=== PATIENT | female | born 1960 | race Caucasian/White ===

== ENCOUNTER 2018-06-14 15:38 | Day surgery (SDC) | payer BC ==
[~2018-06-14 15:38] MED LIST: EPHEDrine SULFATE 50 MG/5 ML SYG; ROCURONIUM 50 MG INJ
[2018-06-14] MEDS ORDERED: PROPOFOL 20 ML (16:49)
[2018-06-14] MEDS ORDERED: CEFAZOLIN 1 GM INJ ×2 (16:49→20:54)
[2018-06-14] MEDS ORDERED: HYDROmorphONE 2 MG/ML SYG (16:50)
[2018-06-14] MEDS ORDERED: ROPIVACAINE 0.5 % 30 ML VIAL (16:50)
[2018-06-14] MEDS ORDERED: MIDAZOLAM 1 MG/ML 2 ML INJ (16:50)
[2018-06-14] MEDS ORDERED: OXYCODONE/ACETAMINOPHEN (5/325) TAB PO ×2 (18:00)
[2018-06-14] MEDS ORDERED: DIPHENHYDRAMINE 50 MG INJ IV (18:00)
[2018-06-14] MEDS ORDERED: METOCLOPRAMIDE 10 MG INJ IV (18:00)
[2018-06-14] MEDS ORDERED: FENTAnyl 50 MCG/ML VIAL IV ×3 (18:00)
[2018-06-14] MEDS ORDERED: HYDROmorphONE 1 MG/5 ML IV SYRINGE IV ×3 (18:00)
[2018-06-14] MEDS ORDERED: LABETALOL HCL 20MG INJ IV (18:00)
[2018-06-14] MEDS ORDERED: EPHEDrine SULFATE 50 MG/5 ML SYG IV (18:00)
[2018-06-14] MEDS ORDERED: MEPERIDINE 25 MG INJ IV (18:00)
[2018-06-14] MEDS ORDERED: morphine 2 MG INJ IV (18:30)
[2018-06-14] MEDS ORDERED: BACITRACIN/POLYMYXIN 28.35 GM OINT TOP (18:36)
[2018-06-14] MEDS ORDERED: PHENYLephrine (100 MCG/ML) 5ML SYG (19:09)
[2018-06-14] MEDS ORDERED: METOCLOPRAMIDE 10 MG INJ (19:35)
[2018-06-14] MEDS ORDERED: KETOROLAC 30 MG INJ (19:35)
[2018-06-14] MEDS ORDERED: DEXAMETHASONE 4 MG/ML 1 ML INJ (19:35)
[2018-06-14] MEDS ORDERED: ONDANSETRON 4 MG INJ (19:35)
[2018-06-14] MEDS ORDERED: GLYCOPYRROLATE 0.4 MG INJ (21:15)
[2018-06-14] MEDS ORDERED: NEOSTIGMINE 3 MG/3 ML SYRINGE (21:15)
[2018-06-14] MEDS ORDERED: LABETALOL HCL 20MG INJ (21:33)
[2018-06-14] MEDS: ONDANSETRON 4 MG INJ IV (22:21)
== END 2018-06-14 23:21 | disposition home or self-care (01) ==
LOC: SDS 15:38
DX: S82.852A Displaced trimalleolar fracture of left lower leg, initial encounter for closed fracture (principal); S93.402A Sprain of unspecified ligament of left ankle, initial encounter; S93.432A Sprain of tibiofibular ligament of left ankle, initial encounter; X58.XXXA Exposure to other specified factors, initial encounter
CPT/HCPCS: 27823; 73610; 82306

== ENCOUNTER 2018-06-15 18:10 | Emergency (ER) | payer SELFPAY, BC | END 2018-06-15 21:53 | disposition left against medical advice (07) | LOC: E/R 18:10 | DX: Z53.21 Procedure and treatment not carried out due to patient leaving prior to being seen by health care provider (principal) ==